=== PATIENT | female | born 1945 | race Caucasian/White ===

== ENCOUNTER → 2016-12-28 | Outpatient (CLI) | payer MEDICARE, OTHER ==
[2016-12-28 12:39] LABS: PCO2 42 mmHg (35-45); PO2 85 mmHg (80-90)
[2016-12-28 14:22] LABS: PCO2 39 mmHg (35-45)
[2016-12-28 14:23] LABS: BICARBONATE 25.3 mmol/L (18.0-23.0); PO2 120 mmHg (80-90)
== END | disposition disaster alternative care site (69) ==
LOC: GCAR 11:38
PROVIDERS: Internal Medicine Critical Care Medicine
DX: R06.02 Shortness of breath (principal); R00.1 Bradycardia, unspecified; R93.1 Abnormal findings on diagnostic imaging of heart and coronary circulation